=== PATIENT | male | born 1940 | race Caucasian/White ===

== ENCOUNTER 2020-06-02 12:41 | Inpatient (IN) ==
[2020-06-02] MEDS ORDERED: NS 500 ML IV 500 ML IV ONE ×2 (13:14→13:20)
--- NOTE | 2020-06-02 13:16 | DR.GENAD ---
HPI Time Seen Time Seen by Provider: 06/02/20 13:04 PCP Primary Care Physician: YANNICK HPI Comment HPI Comment: In with c/o having fever, chills and vomiting as well as a slight, occasional cough as below; no diarrhea, rash, cp, sob or wheezing; no k nown exposure to covid or flu. Complaint/Symptoms Chief Complaint:: PT. STATES THIS PAST THURSDAY HE BEGAN HAVING CHILLS AND VOMITING. PT. IS NO LONGER VOMITING BUT C/O NECK PAIN, FATIGUE, POOR APPETITE AND FEVER. PT. WAS SEEN AT [facility] AND WAS SENT TO THE ER FOR FURTHER TREATMENT. Nurses notes reviewed Nurses Notes Review: Yes Source History Provided: Patient Mode of Arrival Mode of Arrival: Wheelchair Timing Onset of Chief Complaint: 05/28/20 PMH PMH Past Medical History: Yes Past Medical History: Diabetes and Seizures Past Medical History Comment: A-KEN Past Surgical History: Yes Surgical History: Cholecystectomy and Other Family History History of Family Medical Conditions: Yes Family Medical History: Diabetes Mellitus and Coronary Artery Disease Social History Does patient currently use any type of tobacco product: No Have you used tobacco products in the last 12 months: No Type of Tobacco Use: None Does any household member use tobacco: No Alcohol Use: None Do you use any recreational Drugs:: No Lives With: Spouse Lives Where: Home Infectious screening In the last 2 months have you had wt loss of >10#?: NO Have you had fever, night sweats or hemotysis?: No Have you traveled outside the country in the last 6 months?: No Isolation: Droplet ROS Review of Systems Eyes: No Symptoms Reported ENTM: No Symptoms Reported Cardiovascular: No Symptoms Reported Genitourinary: No Symptoms Reported Neurological: No Symptoms Reported Musculoskeletal: No Symptoms Reported Integumentary: No Symptoms Reported Hematologic/Lymphatic: No Symptoms Reported Psychiatric: No Symptoms Reported PE Vital Signs Vitals: Temperature 99.2 F Pulse Rate 109 Respiratory Rate 29 Blood Pressure 135/63 O2 Sat by Pulse Oximetry 94 General Limitations: No Limitations General Appearance: Alert and In No Apparent Distress Head Head Exam: Normal Inspection Eyes Eye exam: Normal Appearance Neck Neck Exam: Normal Inspection, Trachea Midline and Tenderness (rt lateral) Chest Chest Inspection: Normal Inspection Respiratory Respiratory Exam: Normal Lung Sounds Bilat Respiratory Exam: Bilateral: Clear to Auscultation Cardiovascular Cardiovascular Exam: Normal Rhythm and Tachycardia Abdominal Exam Abdominal Exam: Normal Inspection, Normal Bowel Sounds and Soft Extremities Extremities Exam: Normal Inspection Back Back Exam: Normal Inspection Neurologic Neurological Exam: Alert and Oriented X3 Psychiatric Psychiatric Exam: Flat Affect Skin Skin Exam: Diaphoresis ROR Labs Reviewed Result Diagrams: 06/02/20 13:42 06/02/20 13:42 Laboratory: WBC 19.1 X10^3/uL (3.6-10.0) H 06/02/20 13:42 RBC 4.34 X10^6/uL (4.7-6.0) L 06/02/20 13:42 Hgb 12.8 g/dL (13.5-18.0) L 06/02/20 13:42 Hct 38.5 % (42.0-54.0) L 06/02/20 13:42 MCV 88.8 fL (80.0-100.0) 06/02/20 13:42 MCH 29.4 pg (27.0-34.0) 06/02/20 13:42 MCHC 33.1 g/dL (33.0-35.0) 06/02/20 13:42 RDW 13.5 % (11.6-16.5) 06/02/20 13:42 Plt Count 160 X10^3/uL (150.0-450.0) 06/02/20 13:42 Plt Count Comment Adequate (ADEQUATE) 06/02/20 13:42 MPV 8.1 fL (7.4-11.0) 06/02/20 13:42 Neut % (Auto) 86.7 % (42.0-75.0) H 06/02/20 13:42 Lymph % (Auto) 4.4 % (21.0-51.0) L 06/02/20 13:42 Weber % (Auto) 8.5 % (0.0-13.0) 06/02/20 13:42 Eos % (Auto) 0.0 % (0.9-2.9) L 06/02/20 13:42 Baso % (Auto) 0.4 % (0.2-1.0) 06/02/20 13:42 Neut # (Auto) 16.5 x10^3/uL (2.2-4.8) H 06/02/20 13:42 Lymph # (Auto) 0.8 X10^3/uL (1.3-2.9) L 06/02/20 13:42 Weber # (Auto) 1.6 x10^3/uL (0.3-0.8) H 06/02/20 13:42 Eos # (Auto) 0.0 x10^3/uL (0.0-0.2) 06/02/20 13:42 Baso # (Auto) 0.1 X10^3/uL (0.0-0.1) 06/02/20 13:42 Absolute Nucleated RBC 0.0 /100WBC 06/02/20 13:42 Total Counted 100 06/02/20 13:42 Neutrophils % (Manual) 93 % (39-76) H 06/02/20 13:42 Band Neutrophils % 1 % (0-10) 06/02/20 13:42 Lymphocytes % (Manual) 3 % (13-43) L 06/02/20 13:42 Monocytes % (Manual) 3 % (4-9) L 06/02/20 13:42 Plt Morphology Comment Normal (NORMAL) 06/02/20 13:42 RBC Morphology Normal (NORMAL) 06/02/20 13:42 Sample Site Lr 06/02/20 13:45 ABG pH 7.480 (7.35-7.45) H 06/02/20 13:45 ABG pCO2 37.0 mmHg (35.0-45.0) 06/02/20 13:45 ABG pO2 60.0 mmHg (80.0-100.0) L 06/02/20 13:45 ABG HCO3 27.6 mmol/L (22-26) H 06/02/20 13:45 ABG O2 Saturation 92.0 % (90-100) 06/02/20 13:45 ABG Base Excess 4.0 mmol/L (-2.0-2.0) H 06/02/20 13:45 Vinnie Test Positive 06/02/20 13:45 A-a Gradient 43.0 mmHg 06/02/20 13:45 FiO2 21.0 06/02/20 13:45 Blood Gas Comments Pt liss abg well 06/02/20 13:45 Sodium 134 mmol/L (136-145) L 06/02/20 13:42 Corrected Sodium 139 mmol/L (136-145) 06/02/20 13:42 Potassium 3.9 mmol/L (3.5-5.1) 06/02/20 13:42 Chloride 97 mmol/L (98-107) L 06/02/20 13:42 Carbon Dioxide 29.1 mmol/L (21-32) 06/02/20 13:42 BUN 24 mg/dL (7-18) H 06/02/20 13:42 Creatinine 1.97 mg/dL (0.70-1.30) H 06/02/20 13:42 Est GFR (MDRD) Af Amer 42 (>60) L 06/02/20 13:42 Est GFR (MDRD) Non-Af 35 (>60) L 06/02/20 13:42 Glucose 312 mg/dL (65-99) H 06/02/20 13:42 Calcium 8.3 mg/dL (8.5-10.1) L 06/02/20 13:42 Corrected Calcium 9.3 mg/dL (8.5-10.1) 06/02/20 13:42 Ferritin 361 ng/mL (26-388) 06/02/20 13:42 Total Bilirubin 1.10 mg/dL (0.2-1.0) H 06/02/20 13:42 AST 34 Units/L (15-37) 06/02/20 13:42 ALT 29 Units/L (12-78) 06/02/20 13:42 Alkaline Phosphatase 159 Units/L (46-116) H 06/02/20 13:42 C-Reactive Protein 258.80 mg/L (0-3.0) H 06/02/20 13:42 Total Protein 6.4 g/dL (6.4-8.2) 06/02/20 13:42 Albumin 2.8 g/dL (3.4-5.0) L 06/02/20 13:42 Globulin 3.6 g/dL (2.5-4.5) 06/02/20 13:42 Albumin/Globulin Ratio 0.8 Ratio (1.1-2.1) L 06/02/20 13:42 SARS-CoV-2 (PCR) Negative (NEGATIVE) 06/02/20 14:24 Opioid Opioid Risk Tool Total: 0 Total Score Risk Category: Low Risk Copyright: Rayray ANDRADE predicting aberrant behaviors Diagnosis Discharge Problem: Atypical pneumonia, Hypoxia, Enteritis, Neck pain on right side Sepsis Qualifiers: Sepsis type: sepsis due to unspecified organism Sepsis acute organ dysfunction status: with acute organ dysfunction Severe sepsis acute organ dysfunction type: acute respiratory failure Acute respiratory failure type: with hypoxia Severe sepsis shock status: without septic shock Qualified Code(s): A41.9 - Sepsis, unspecified organism Nausea & vomiting Qualifiers: Vomiting type: unspecified Vomiting Intractability: non-intractable Qualified Code(s): R11.2 - Nausea with vomiting, unspecified Instructions Instructions: Community-Acquired Pneumonia, Adult, [id number]
[2020-06-02 13:51] LABS: BASOPHILS # (AUTO) 0.1 X10^3/uL (0.0-0.1); BASOPHILS % (AUTO) 0.4 % (0.2-1.0); HEMATOCRIT 38.5 % (42.0-54.0); HEMOGLOBIN 12.8 g/dL (13.5-18.0); LYMPHOCYTES # (AUTO) 0.8 X10^3/uL (1.3-2.9); LYMPHOCYTES % (AUTO) 4.4 % (21.0-51.0); MEAN CORPUSCULAR HEMOGLOBIN 29.4 pg (27.0-34.0); MEAN CORPUSCULAR HGB CONC 33.1 g/dL (33.0-35.0); MEAN CORPUSCULAR VOLUME 88.8 fL (80.0-100.0); MEAN PLATELET VOLUME 8.1 fL (7.4-11.0); MONOCYTES # (AUTO) 1.6 x10^3/uL (0.3-0.8); MONOCYTES % (AUTO) 8.5 % (0.0-13.0); NEUTROPHILS # (AUTO) 16.5 x10^3/uL (2.2-4.8); NEUTROPHILS % (AUTO) 86.7 % (42.0-75.0); PLATELET COUNT 160 X10^3/uL (150.0-450.0); RED BLOOD COUNT 4.34 X10^6/uL (4.7-6.0); RED CELL DISTRIBUTION WIDTH 13.5 % (11.6-16.5); WHITE BLOOD COUNT 19.1 X10^3/uL (3.6-10.0)
[2020-06-02 13:52] LABS: ABG HCO3 27.6 mmol/L (22-26)
[2020-06-02 13:53] LABS: ABG ALLEN TEST POSITIVE
[2020-06-02 13:59] LABS: BAND NEUTROPHILS % 1 % (0-10); PLATELET MORPHOLOGY COMMENT NORMAL (NORMAL)
[2020-06-02 14:02] LABS: ALBUMIN 2.8 g/dL (3.4-5.0); CALCIUM 8.3 mg/dL (8.5-10.1); CARBON DIOXIDE 29.1 mmol/L (21-32); COR CA(FOR HYPOALB) 9.3 mg/dL (8.5-10.1); CREATININE 1.97 mg/dL (0.70-1.30); TOTAL PROTEIN 6.4 g/dL (6.4-8.2)
--- NOTE | 2020-06-02 14:04 | RAD ---
HISTORYCHILLS, SOB, NAUSEA, VOMITTINGSTUDYACUTE ABDOMEN x-ray SERIES, one view chest and two views abdomenCOMPARISONNoneFINDINGSMild bilateral vague infiltrates are not excluded in the lungs. Findings could be due to skin folds and/or atelectasis, though. Heart is normal in size. No pneumothorax or pleural effusion is seen.No free intraperitoneal air. There is a mild increased air within nondilated small bowel loops diffusely. Appearance is nonspecific but could be seen with enteritis. Little colonic air is seen. No evidence of constipation. No suspicious air-fluid levels are seen.IMPRESSIONConsider possible atypical pneumonia.Possible mild enteritis changes.Electronically signed by: Zion Hannah (Jun 02, 2020 14:02:28)
[2020-06-02] MEDS ORDERED: HumuLIN R SUBCUT PRN (16:16)
[2020-06-02] MEDS ORDERED: ROCEPHIN 1 GRAM IV PREMIX 1 G/50 ML IV.SOLN. IV ONE (16:21)
[2020-06-02] MEDS ORDERED: ZOFRAN INJ 4 MG VIAL IVP PRN (16:33)
[2020-06-02] MEDS ORDERED: MORPHINE SULFATE INJ 2 MG INJ IV PRN (16:33)
[2020-06-02] MEDS ORDERED: ROCEPHIN VIAL 1 GRAM ONE (16:35)
[2020-06-02] MEDS ORDERED: NS 1000 ML 1,000 ML ONE ×2 (16:35→19:26)
[2020-06-02] MEDS ORDERED: NS 100 ML IV + SPIKE MINIBAG* 100 ML IV ONE (16:35)
[2020-06-02] MEDS ORDERED: MORPHINE SULFATE INJ 2 MG INJ ONE (16:37)
[2020-06-02] MEDS ORDERED: NS 1000 ML 1,000 ML IV SCH (17:00)
[2020-06-02] MEDS ORDERED: DUONEB 0.5 MG/3 MG (3 mL) NEB PRN (17:43)
[2020-06-02 18:56] LABS: BILIRUBIN,URINE NEGATIVE (NEGATIVE); BLOOD/HEMOGLOBIN,URINE 4+ (NEGATIVE); GLUCOSE, URINE 3+ (NEGATIVE); KETONES,URINE 1+ (NEGATIVE); LEUKOCYTE ESTERASE ,URINE NEGATIVE (NEGATIVE); NITRITES,URINE NEGATIVE (NEGATIVE); PROTEIN,URINE 3+ (NEGATIVE); UROBILINOGEN,URINE 2+ (NORMAL)
[2020-06-02] MEDS ORDERED: NS 1000 ML 1,000 ML IV ONE (19:00)
[2020-06-02 19:03] LABS: APPEARANCE,URINE SLIGHTLY HAZY (CLEAR); COLOR,URINE YELLOW (YELLOW); SQUAMOUS EPITHELIAL CELL,UR NEGATIVE /HPF (NEGATIVE)
[2020-06-02 19:04] LABS: AMORPHOUS SEDIMENT,UR 1+ /HPF (NEGATIVE); BACTERIA,URINE 1+ /HPF (NEGATIVE); HYALINE CASTS, URINE MODERATE /LPF (NEGATIVE)
--- NOTE | 2020-06-02 19:19 | RAD ---
HISTORY:TachycardiaStudy: Single view chestComparison:NoneFindings:Single portable view submitted, limited by patient positioning and overlying wires. No infiltrate, effusion, or pneumothorax identified .Cardiac and mediastinal contours are within normal limits .The soft tissues are intact .IMPRESSION:1. No acute cardiopulmonary abnormality.Electronically signed by: CARMEN BARNEY (Jun 02, 2020 19:17:14)
[2020-06-02] MEDS: NS 1000 ML 1,000 ML IV SCH ×2 (19:27→21:44)
[2020-06-02] MEDS: VIBRAMYCIN 100 MG in D5W 250 ML IV 250 ML IV SCH (22:00)
[2020-06-03] MEDS: NS 1000 ML 1,000 ML IV SCH ×4 (03:32→21:10)
[2020-06-03] MEDS ORDERED: TYLENOL 325 MG TAB PO PRN (05:06)
[2020-06-03] MEDS ORDERED: TYLENOL 325 MG TAB PO ONE (05:07)
[2020-06-03 06:10] LABS: BASOPHILS % (AUTO) 0.2 % (0.2-1.0); EOSINOPHILS % (AUTO) 0.2 % (0.9-2.9); HEMOGLOBIN 11.7 g/dL (13.5-18.0); LYMPHOCYTES # (AUTO) 1.6 X10^3/uL (1.3-2.9); LYMPHOCYTES % (AUTO) 10.6 % (21.0-51.0); MEAN CORPUSCULAR HEMOGLOBIN 29.6 pg (27.0-34.0); MEAN CORPUSCULAR HGB CONC 33.4 g/dL (33.0-35.0); MEAN CORPUSCULAR VOLUME 88.8 fL (80.0-100.0); MEAN PLATELET VOLUME 8.5 fL (7.4-11.0); MONOCYTES # (AUTO) 1.4 x10^3/uL (0.3-0.8); MONOCYTES % (AUTO) 9.5 % (0.0-13.0); NEUTROPHILS # (AUTO) 11.7 x10^3/uL (2.2-4.8); NEUTROPHILS % (AUTO) 79.5 % (42.0-75.0); PLATELET COUNT 139 X10^3/uL (150.0-450.0); RED BLOOD COUNT 3.94 X10^6/uL (4.7-6.0); RED CELL DISTRIBUTION WIDTH 13.4 % (11.6-16.5); WHITE BLOOD COUNT 14.7 X10^3/uL (3.6-10.0)
[2020-06-03 06:32] LABS: ALBUMIN 2.4 g/dL (3.4-5.0); CALCIUM 7.9 mg/dL (8.5-10.1); COR CA(FOR HYPOALB) 9.2 mg/dL (8.5-10.1); CREATININE 1.58 mg/dL (0.70-1.30); TOTAL PROTEIN 5.7 g/dL (6.4-8.2)
[2020-06-03 06:42] LABS: CARBON DIOXIDE 28.4 mmol/L (21-32)
[2020-06-03] MEDS: VIBRAMYCIN 100 MG in D5W 250 ML IV 250 ML IV SCH ×2 (09:10→20:43)
[2020-06-03] MEDS ORDERED: LR 1000 ML IV 1,000 ML IV ONE (14:49)
[2020-06-03] MEDS: FLOMAX PO SCH ×2 (15:17→20:40)
[2020-06-03] MEDS: GLUCOPHAGE XR 24-HR PO SCH ×2 (15:17→20:48)
[2020-06-03] MEDS: ACTOS PO SCH (15:17)
[2020-06-03] MEDS ORDERED: ALTACE 5 MG CAP PO ONE (15:50)
[2020-06-03] MEDS ORDERED: ALTACE CAP 10 MG PO SCH (16:00)
[2020-06-03 18:56] VITALS: BMI 23.7
[2020-06-03] MEDS ORDERED: LAMICTAL TAB 100 MG PO ONE (19:17)
[2020-06-03] MEDS ORDERED: KEPPRA TAB 500 MG ONE (19:18)
[2020-06-03] MEDS ORDERED: NEURONTIN CAP 300 MG ONE (19:18)
[2020-06-03] MEDS: LAMICTAL TAB 100 MG PO SCH (20:41)
[2020-06-03] MEDS: KEPPRA TAB 500 MG PO SCH (20:42)
[2020-06-03] MEDS ORDERED: NEURONTIN CAP 300 MG PO SCH (21:00)
[2020-06-04] MEDS: NS 1000 ML 1,000 ML IV SCH ×2 (05:22)
--- NOTE | 2020-06-04 06:12 | RAD ---
HISTORYHypoxiaSTUDYChest PA and [id number]/28/2020FINDINGSThe heart is upper limits normal in size. No congestive heart failure is noted. The lungs are mildly hyperinflated but free of acute alveolar infiltrates. No pleural effusions are identified. Bony thorax is unremarkable.IMPRESSIONLungs mildly hyperinflated but clearElectronically signed by: YOVANY PIRES (Jun 04, 2020 06:10:14)
[2020-06-04 06:21] LABS: BASOPHILS % (AUTO) 0.3 % (0.2-1.0); EOSINOPHILS # (AUTO) 0.2 x10^3/uL (0.0-0.2); EOSINOPHILS % (AUTO) 1.5 % (0.9-2.9); HEMATOCRIT 37.4 % (42.0-54.0); HEMOGLOBIN 12.6 g/dL (13.5-18.0); LYMPHOCYTES # (AUTO) 1.5 X10^3/uL (1.3-2.9); LYMPHOCYTES % (AUTO) 14.5 % (21.0-51.0); MEAN CORPUSCULAR HEMOGLOBIN 29.7 pg (27.0-34.0); MEAN CORPUSCULAR HGB CONC 33.8 g/dL (33.0-35.0); MEAN PLATELET VOLUME 8.6 fL (7.4-11.0); MONOCYTES # (AUTO) 1.1 x10^3/uL (0.3-0.8); MONOCYTES % (AUTO) 10.6 % (0.0-13.0); NEUTROPHILS # (AUTO) 7.6 x10^3/uL (2.2-4.8); NEUTROPHILS % (AUTO) 73.1 % (42.0-75.0); PLATELET COUNT 171 X10^3/uL (150.0-450.0); RED BLOOD COUNT 4.25 X10^6/uL (4.7-6.0); RED CELL DISTRIBUTION WIDTH 13.6 % (11.6-16.5); WHITE BLOOD COUNT 10.4 X10^3/uL (3.6-10.0)
--- NOTE | 2020-06-04 06:33 | RAD ---
HISTORYHypoxiaSTUDYChest AP [id number]/29/2020FINDINGSHeart remains upper limits normal in size. No congestive heart fa ilure is noted. The lungs remain mildly hyperinflated but free of acute infiltrates. No pleural effus ions are identified. Bony thorax is unremarkable.IMPRESSIONLungs mildly hyperinflated but clearElectr onically signed by: YOVANY PIRES (Jun 04, 2020 06:31:40)
[2020-06-04 06:47] LABS: ALANINE AMINOTRANSFERASE 23 Units/L (12-78); ALBUMIN 2.3 g/dL (3.4-5.0); ALKALINE PHOSPHATASE 132 Units/L (46-116); ASPARTATE AMINO TRANSFERASE 35 Units/L (15-37); BLOOD UREA NITROGEN 16 mg/dL (7-18); CALCIUM 8.2 mg/dL (8.5-10.1); CARBON DIOXIDE 24.6 mmol/L (21-32); CHLORIDE 104 mmol/L (98-107); COR CA(FOR HYPOALB) 9.6 mg/dL (8.5-10.1); COR NA(FOR HYPERGLY) 140 mmol/L (136-145); SODIUM 138 mmol/L (136-145); TOTAL PROTEIN 5.8 g/dL (6.4-8.2); eGFR NON BLACK RACES > 60 (>60)
[2020-06-04 08:15] VITALS: BP 122/80
[2020-06-04] MEDS ORDERED: NEURONTIN TAB 600 MG PO SCH (09:00)
[2020-06-04] MEDS: GLUCOPHAGE XR 24-HR PO SCH (09:36)
[2020-06-04] MEDS: ACTOS PO SCH (09:36)
[2020-06-04] MEDS: LAMICTAL TAB 100 MG PO SCH (09:37)
[2020-06-04] MEDS: KEPPRA TAB 500 MG PO SCH (09:38)
[2020-06-04] MEDS: VIBRAMYCIN 100 MG in D5W 250 ML IV 250 ML IV SCH (09:43)
== END 2020-06-04 12:25 | disposition home or self-care (01) | DRG 871 ==
LOC: ER 12:54 → ICU 16:25 → MED/SURG 06-03 15:10
PROVIDERS: ADMIT Obstetrics & Gynecology Obstetrics; ATTEND Obstetrics & Gynecology Obstetrics
DX: Z20.828 Contact with and (suspected) exposure to other viral communicable diseases; R79.82 Elevated C-reactive protein (CRP); R11.2 Nausea with vomiting, unspecified; A40.1 Sepsis due to streptococcus, group B; N41.0 Acute prostatitis; R65.20 Severe sepsis without septic shock; R09.02 Hypoxemia; N17.9 Acute kidney failure, unspecified; K52.9 Noninfective gastroenteritis and colitis, unspecified; R94.31 Abnormal electrocardiogram [ECG] [EKG]; J18.9 Pneumonia, unspecified organism; E86.0 Dehydration